=== PATIENT | female | born 1955 ===

== ENCOUNTER 2020-04-03 08:59 | Outpatient (RCR) | payer MEDICARE, OTHER, SELFPAY ==
--- NOTE | 2020-04-03 10:07 | PTOPEVAL ---
Thank you for referring Shereen Mohr to [facility].? The patient is scheduled to be seen for therapy? ____x/week for ___ weeks. Please review, sign, date and return this plan of care YOVANI. I agree with and certify that the following plan of care is medically necessary. Referring Physician Date Admitting Provider: Attending Provider: PHYSICIAN NOT ON STAFF Referring Provider: *PT Outpatient Evaluation Start: 04/03/20 09:03 Freq: Status: Active Protocol: Document 04/03/20 09:04 INGRID (Rec: 04/03/20 10:00 INGRID [email or web address]) Therapy Assessment Status Assessment Status Assessment Status Evaluation Evaluation Information Problem Diagnosis left TKA Onset 03/13/20 Subjective Information Pt. reports that she underwent Query Text:As Reported By Patient/ left TKA on 03/13/20. she Family reports that pain is minimal. she has been doing hh and was discharged last Friday. She reports that she cannot get her knee straight yet. She reports that she believes her last flexion measurement was 98 degrees. She reports that she is sleeping well at night. Pt. reports that her goal is to return to shopping and navigating stairs normally. 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[employer] Right Activity of Daily Living Ability Independent Indoor/Home Mobility Independent Community Mobility Independent Stairs Ability Independent Functional Cognition (Planning, Shopping Independent , Taking Medications) Cooking Yes Cleaning Yes Laundry Yes Shopping Yes Driving Yes Pain Assessment Pain Scale Pain Scale Used Numeric (1 - 10) Self Report Pain Assessment Left Knee(s) Reported Pain Level 0 Pain Score Pain Score 0: Self Report Lower Extremity Range of Motion General Lower Extremity Range of Motion Gross Lower Extremity Range of Motion -right knee AROM 0-123 Comments -left knee AROM 7-91 Lower Extremity Muscle Strength Testing General Lower Extremity Strength Gross Lower Extremity Strength bilateral hip flexion 4+/5, bilateral hip abduction 4/5, bilateral knee flexion 5/5, right knee extension 5/5, left
== END 2020-04-28 10:44 | disposition home or self-care (01) ==
LOC: CHSPT 08:59
DX: Z96.652 Presence of left artificial knee joint (principal); M25.562 Pain in left knee
CPT/HCPCS: 97110; 97161; 97530

== ENCOUNTER 2023-10-23 15:59 | Outpatient (RCR) | payer MEDICARE, SELFPAY ==
--- NOTE | 2023-10-23 17:39 | OPREHPOC ---
Outpatient Therapy Plan of Care This is a Multidisciplinary Plan of Care that may contain components documented by all disciplines (PT, OT, and ST.) PT Problem 1 PT Problem #1 Knowledge Deficit PT Goal 1 Goal The patient will be independent in a home exercise program. Target Visit 2 PT Problem 2 PT Problem #2 Impaired Vestibular Syste PT Goal 1 Goal The patient will report a 75% or greater reduction in vertigo episodes. Target Visit 4 PT Problem 3 PT Problem #3 Impaired Functional Mobil PT Goal 1 Goal The patient will demonstrate 25% or less handicap per the Dizziness Handicap Assessment. Target Visit 4
--- NOTE | 2023-10-23 17:39 | PTOPEVAL1 ---
Assessment and note entered by Anai Dejesus, PT Evaluation Information Assessment Status Evaluation Diagnosis Vertigo Onset 09/26/23 Subjective Information Shereen Mohr reports she was woke up with vertigo on 09/26/23. She denies ear/sinus infections, changes in medication, or injury prior to the onset. She reports she became nauseous and started vomiting. It did not go away so she went to urgent care and then was admitted to the hospital. She spent 3 days in the hospital and MRI and CT scan were performed and came back normal. She was told her right ear is full of wax. She was given meclizine to stop the symptoms. Goodwin then went to her PCP and was referred to PT and ENT. She has a meclizine prescription to take when she has symptoms. She has not had to take it since 10/18/23 but, prior to that she was taking it about every 2 days. She will see ENT at the end of October. She notes vertigo when she turns her head to the right, rolls to the right, looks up, or bends over . Reported Pain Level Pain Score 0: Self Report Assessment PT Clinical Summary Shereen Mohr presents with positional vertigo with an insidious onset on 09/26/23. She is having difficulty with turning her head to the right, rolling to the right, looking up, and bending over . She objectively demonstrates nystagmus and vertigo with right [place] Hallpike test and right roll test and vertigo leading to decreased functional abilities. She will benefit from skilled PT to address these limitations. Plan of Care Interventions Neuro Re-education,Patient/Caregiver Educati,Other Other Interventions vestibular rehab PT Services Indicated Yes Treatment Frequency and 1 times a week for 4 visits Duration These treatments will address the objective and functional deficits as defined above. The patient will be advanced safely and appropriately in order for the patient to progress towards his/her prior level of function. Additional exercises will be introduced and as well as a comprehensive home exercise program upon discharge, if needed, ?to ensure carryover of functional gains achieved in the clinic. This treatment plan has been reviewed and agreement upon by the patient.
--- NOTE | 2023-11-05 13:13 | OPREHPOC ---
Outpatient Therapy Plan of Care This is a Multidisciplinary Plan of Care that may contain components documented by all disciplines (PT, OT, and ST.) PT Problem 1 PT Problem #1 Knowledge Deficit PT Goal 1 Goal The patient will be independent in a home exercise program. Target Visit 2 Progress Met PT Problem 2 PT Problem #2 Impaired Vestibular Syste PT Goal 1 Goal The patient will report a 75% or greater reduction in vertigo episodes. Target Visit 4 Progress Met PT Problem 3 PT Problem #3 Impaired Functional Mobil PT Goal 1 Goal The patient will demonstrate 25% or less handicap per the Dizziness Handicap Assessment. Target Visit 4 Progress Met
--- NOTE | 2023-11-05 13:13 | PTOPDC ---
Assessment and note entered by JT File, PT Evaluation Information Assessment Status Discharge Diagnosis Vertigo Onset 09/26/23 Subjective Information patient reports she feels Good today. she reports she has had no symptoms for a week. she reports she is doing well, and has been able to return to driving and all activities. Reported Pain Level Pain Score 0: Self Report Assessment PT Clinical Summary mrs wood presents to skilled PT services for her 4th skilled therapy visit. she no longer has any dizziness, and has no had vertigo in a week. she is compliant with her HEP. she was educated in continuation of HEP exercises with sitting and standing anca avila. she will be DC'd from skilled PT today for having met all goals and no longer having symptoms. Plan of Care PT Services Indicated Yes
== END 2023-11-05 13:58 | disposition home or self-care (01) ==
LOC: CHSPT 15:59
DX: H81.11 Benign paroxysmal vertigo, right ear (principal)
CPT/HCPCS: 95992; 97110; 97112; 97161

== ENCOUNTER 2025-01-14 12:56 | Outpatient (RCR) | payer MEDICARE, SELFPAY ==
--- NOTE | 2025-01-14 14:01 | OPREHPOC ---
Outpatient Therapy Plan of Care This is a Multidisciplinary Plan of Care that may contain components documented by all disciplines (PT, OT, and ST.) PT Problem 1 PT Problem #1 Knowledge Deficit PT Goal 1 Goal / Goal Update The patient will be independent in a home exercise program. Target Visit 2 PT Problem 2 PT Problem #2 Pain PT Goal 1 Goal / Goal Update The patient will report no greater than 1/10 right knee pain with standing up from sitting and stair negotiation. Target Visit 10 PT Problem 3 PT Problem #3 Impaired Functional Mobility PT Goal 1 Goal / Goal Update The patient will demonstrate 20% or less self perceived disability per the LEFS questionnaire. The patient will ascend/descend 8 stairs reciprocally without increased knee pain to improve functional mobility. The patient will complete 1,200 feet during the 6 MWT without antalgia or increased knee pain noted to improve community ambulation. The patient will return to golf without right knee pain noted. Target Visit 10 PT Problem 4 PT Problem #4 Impaired Strength PT Goal 1 Goal / Goal Update The patient will demonstrate at least 4/5 right knee and hip strength to improve ambulation and functional mobility. The patient will demonstrate the ability to perform 10 sit to stand repetitions without UE support. Target Visit 10 PT Problem 5 PT Problem #5 Impaired Range of Motion PT Goal 1 Goal / Goal Update The patient will demonstrate 0-120 degrees right knee ROM to improve gait and stair negotiation. Target Visit 10
--- NOTE | 2025-01-14 14:01 | PTOPEVAL1 ---
Assessment and note entered by Anai Dejesus, PT Evaluation Information Assessment Status Evaluation ICD-10 Condition Codes (PT) Pain in right knee M25.561,Encounter for other orthopedic aftercare Z47.89,Aftercare following joint replacement surgery Z47.1 Onset 12/09/24 Subjective Information Shereen Mohr reports she had her right knee replaced on 12/09/24. She has been utilizing a cane to get around outside her home. She used a [employer] tech exercise bike from day after surgery until for 5 times a day for 20 minutes at a time. She is noting minimal pain just mild when she first stands up. She has returned to driving without difficulty. She has 3 steps to enter her home and she is doing them one at a time. She has been doing exercises consisting of small kicks, ankle pumps, heel prop, and heel slides. She went to the doctor on 01/10/25 and he was happy with her progress and does not want to see her until a year out. He referred her to PT. Reported Pain Level Pain Score 0: Self Report Assessment PT Clinical Summary Shereen Mohr presents 5 weeks s/p right TKA. She has difficulty with walking on uneven terrain, initial standing, and stair negotiation. She objectively demonstrates decreased right knee AROM , decreased right knee and hip strength, decreased endurance, and decreased functional mobility. She will benefit from skilled PT to address these limitations. Plan of Care Interventions Electrical Stimulation,Gait Training,Hot Pack/Cold Pack,Manual Therapy,Neuro Re-education,Patient/ Caregiver Education,Therapeutic Activities, Therapeutic Exercise PT Services Indicated Yes Treatment Frequency and 2 times a week for 10 visits Duration These treatments will address the objective and functional deficits as defined above. The patient will be advanced safely and appropriately in order for the patient to progress towards his/her prior level of function. Additional exercises will be introduced and as well as a comprehensive home exercise program upon discharge, if needed, ?to ensure carryover of functional gains achieved in the clinic. This treatment plan has been reviewed and agreement upon by the patient.
--- NOTE | 2025-02-24 13:35 | OPREHPOC ---
Outpatient Therapy Plan of Care This is a Multidisciplinary Plan of Care that may contain components documented by all disciplines (PT, OT, and ST.) PT Problem 1 PT Problem #1 Knowledge Deficit PT Goal 1 Goal / Goal Update The patient will be independent in a home exercise program. Target Visit 2 Progress Met PT Problem 2 PT Problem #2 Pain PT Goal 1 Goal / Goal Update The patient will report no greater than 1/10 right knee pain with standing up from sitting and stair negotiation. Target Visit 10 Progress Met PT Problem 3 PT Problem #3 Impaired Functional Mobility PT Goal 1 Goal / Goal Update The patient will demonstrate 20% or less self perceived disability per the LEFS questionnaire. -not met The patient will ascend/descend 8 stairs reciprocally without increased knee pain to improve functional mobility. -met The patient will complete 1,200 feet during the 6 MWT without antalgia or increased knee pain noted to improve community ambulation. -met The patient will return to golf without right knee pain noted. -not assessed Target Visit 10 Progress Partially Met PT Problem 4 PT Problem #4 Impaired Strength PT Goal 1 Goal / Goal Update The patient will demonstrate at least 4/5 right knee and hip strength to improve ambulation and functional mobility. -met The patient will demonstrate the ability to perform 10 sit to stand repetitions without UE support. -met Target Visit 10 PT Problem 5 PT Problem #5 Impaired Range of Motion PT Goal 1 Goal / Goal Update The patient will demonstrate 0-120 degrees right knee ROM to improve gait and stair negotiation. - met Target Visit 10 Progress Met
--- NOTE | 2025-02-24 13:36 | PTOPDC ---
Assessment and note entered by Anai Dejesus, PT Evaluation Information Assessment Status Discharge ICD-10 Condition Codes (PT) Pain in right knee M25.561,Encounter for other orthopedic aftercare Z47.89,Aftercare following joint replacement surgery Z47.1 Onset 12/09/24 Subjective Information Shereen Mohr reports her right knee is doing well . She has been able to return to her previous activity level and does not feel she has any limitations. She has had little to no knee pain as well. Reported Pain Level Pain Score 0: Self Report Assessment PT Clinical Summary Shereen Mohr has completed 10 skilled PT visits following a right TKA. She reports her knee is doing well, has very little pain, and she has returned to her previous activity level. She demonstrates improved right knee AROM to +1-125 degrees, improved right knee and hip strength, improved functional mobility, ability to ascend/ descend stairs reciprocally, and improved gait. She will be discharged to an independent [facility]. Plan of Care PT Services Indicated No
== END 2025-02-24 13:39 | disposition home or self-care (01) ==
LOC: CHSPT 12:56
DX: Z47.1 Aftercare following joint replacement surgery (principal); M25.561 Pain in right knee; Z96.651 Presence of right artificial knee joint
CPT/HCPCS: 97110; 97112; 97161; 97530; 97750